=== PATIENT | male | born 1995 | race Caucasian/White ===

== ENCOUNTER 2019-02-05 05:28 | Emergency (ER) | payer OTHER ==
[2019-02-05] MEDS ORDERED: ONDANSETRON DISINTEGRATING 4 MG TAB PO ONE (05:55)
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
[2019-02-05 06:40] VITALS: BP 140/100
--- NOTE | 2019-02-06 04:38 | CPEKG ---
Test Reason : OPEN Blood Pressure : / mmHG Vent. Rate : 079 BPM Atrial Rate : 079 BPM P-R Int : 143 ms QRS Dur : 101 ms QT Int : 353 ms P-R-T Axes : 061 070 -04 degrees QTc Int : 405 ms Sinus rhythm Probable left atrial enlargement Confirmed by Sheryl Mcgee ([id number]) on 02/06/2019 4:38:46 AM Referred By: PHYSICIAN ED Confirmed By:Sheryl Mcgee
== END 2019-02-05 06:40 | disposition home or self-care (01) ==
DX: R00.2 Palpitations (principal); F10.920 Alcohol use, unspecified with intoxication, uncomplicated; F15.920 Other stimulant use, unspecified with intoxication, uncomplicated; F17.200 Nicotine dependence, unspecified, uncomplicated

== ENCOUNTER 2019-02-07 14:13 | Emergency (ER) | payer OTHER ==
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
[2019-02-07] MEDS ORDERED: NS 1,000 ML IV ONE (14:42)
[2019-02-07] MEDS ORDERED: IOPAMIDOL (ISOVUE-300) 100 ML BTL ONE (14:57)
[2019-02-07 16:06] VITALS: BP 122/74
== END 2019-02-07 16:31 | disposition home or self-care (01) ==
DX: R07.89 Other chest pain (principal); E86.9 Volume depletion, unspecified; Y04.0XXA Assault by unarmed brawl or fight, initial encounter; Y92.524 Gas station as the place of occurrence of the external cause
CPT/HCPCS: 82435-PO; 82565-PO; 82947-PO; 84132-PO; 84295-PO; 84520-PO; 85014-ER; Q9967